=== PATIENT | female | born 1950 | race Caucasian/White ===

== ENCOUNTER 2021-08-05 19:32 | Inpatient (IN) ==
--- NOTE | 2021-08-05 19:59 | Emergency Department Note ---
Abdominal Pain HPI <SHAUNA Callahan - Last Filed: 08/05/21 23:24> General Chief Complaint: Abdominal Pain Stated Complaint: abdominal pain Time Seen by Provider: 08/05/21 19:49 Source: patient Mode of arrival: ambulatory Limitations: no limitations History of Present Illness HPI Narrative: Narrative: patient is a 71-year-old female that comes into the emergency department today after she was seen in urgent care earlier for abdominal pain. Patient was seen at the [facility] [place] and a CBC, CMP, and abdominal x-ray was obtained. Her CBC does not show any leukocytosis and is rather well. Her CMP has a finding total bilirubin 1.2. Normal AST and ALT. Her abdominal x-ray film was read by Dr. Szymanski today that shows partial proximal jejunal obstruction. Patient reports that her symptoms started on Monday where she started to have vomiting which is now resolved. Patient has had diffuse abdominal aching sensation, bloating, and decreased appetite since Monday this week. She reports having a very small brown bowel movement on Monday morning, but since that time has not passed any further bowel movements and reports not passing any gas. She has a history of a bowel obstruction that occurred 20 years ago requiring surgical intervention. She has not had any fevers or chills. She denies any vomiting recently, but did vomit on Monday. Related Data Home Medications Medication Instructions Recorded Confirmed gabapentin 300 mg capsule 300 mg BID 08/05/21 08/05/21 Previous Rx's Medication Instructions Recorded tizanidine 4 mg tablet See Rx Instructions PO BID PRN #90 03/23/21 tab Allergies Allergy/AdvReac Type Severity Reaction Status Date / Time Penicillins Allergy Unknown Hives Verified 08/06/21 01:09 perfume AdvReac Unknown Eyes Water Verified 08/06/21 01:09 Review of Systems <SHAUNA Callahan - Last Filed: 08/05/21 23:24> ROS ROS Narrative: Narrative: All systems ED: reviewed and negative except as stated. PFSH <SHAUNA Callahan - Last Filed: 08/05/21 23:24> Narrative Patient History Narrative: Narrative: Medical/Surgical/Family History All Active Problems (Updated 08/05/21 @ 22:49 by SHAUNA Callahan) Small bowel obstruction (Acute) Nausea & vomiting (Acute) Abdominal pain (Acute) Medicare annual wellness visit, initial (Acute) Cervical disc disease (Acute) Bowel movement symptom (Acute) Joint pain (Chronic ~2018) Muscle pain (Chronic ~2018) Arthritis (Chronic ~2018) Calculus of kidney (Chronic ~04/2013) Pyelonephritis (Chronic) Medical History (Updated 08/05/21 @ 22:49 by SHAUNA Callahan) Abdominal pain Arthritis (~2018) Bowel movement symptom Calculus of kidney (~04/2013) Cervical disc disease Joint pain (~2018) Medicare annual wellness visit, initial Muscle pain (~2018) Related to spinal stenosis Nausea & vomiting Pain and swelling of ankle Pyelonephritis Surgical History History of appendectomy (~2001) History of laparotomy (~2001) 1982 to address ectopic History of surgery Scar tissue from ectopic wrapped around a section of bowel, surgery to removal blockage. S/P cataract surgery (~1984) 1969 S/P lens implant (~2007) S/P tonsillectomy (~1952) Family History Grandmother Arthritis Maternal HTN (hypertension) Paternal Sister Colon cancer Grandfather Skin cancer Paternal Myocardial infarction Maternal Mother Dementia HTN (hypertension) Migraines Father CVA (cerebral vascular accident) Social History Smoking Status: Former smoker Alcohol Intake Frequency: 0-2 drinks per day Substance Use: does not use Exam <SHAUNA Callahan - Last Filed: 08/05/21 23:24> Narrative Narrative: Narrative: General Limitations: no limitations General appearance: Present alert and in no apparent distress Head Head: Present normocephalic Eye Eye: Present normal appearance; Absent scleral icterus or conjunctival injection ENT ENT: Present normal oropharynx and mucous membranes moist Neck Neck: Present normal inspection Chest Chest: Present normal inspection and symmetric chest wall rise Respiratory Respiratory: Present normal lung sounds bilaterally; Absent respiratory distress, rales/crackles or accessory muscle use Cardiovascular Cardiovascular: Present regular rate, normal rhythm and normal heart sounds; Absent systolic murmur or diastolic murmur Adbominal Abdominal: Present soft and diminished bowel sounds; Absent tenderness, rebound, rigidity, ascites, mass or hernia Extremities Extremities: Present normal inspection, full ROM and normal capillary refill; Absent pedal edema or pretibial edema Neurological Neurological: Present alert and oriented X3 Psychiatric Psychiatric: Present normal affect and normal mood Skin Skin: Present warm (WNL), dry and normal color Course <SHAUNA Callahan - Last Filed: 08/05/21 23:24> Vital Signs Vital signs: Vital Signs Temperature 97.3 F 08/05/21 19:32 Pulse Rate 94 H 08/05/21 19:32 Respiratory Rate 18 08/05/21 19:32 Blood Pressure 146/92 08/05/21 19:32 Pulse Oximetry (%) 99 08/05/21 19:32 Temperature 98.2 F 08/06/21 03:58 Pulse Rate 71 08/06/21 03:58 Respiratory Rate 14 08/06/21 03:58 Blood Pressure 130/84 08/06/21 03:58 Pulse Oximetry (%) 97 08/06/21 03:58 MDM <SHAUNA Callahan - Last Filed: 08/05/21 23:24> MDM Narrative Medical decision making narrative: Narrative: patient is a 71-year-old female with a small bowel obstruction and came into the emergency department after being evaluated at urgent care. Patient received a CT abdomen and pelvis with contrast. This was read by [facility] with preli minary report showing moderate amount of stool with small amount of free fluid. Small bowel obstruction likely transition point in right lower quadrant where there is some wall thickening. I was able to consult with Dr. Nato Man today had [facility] and he accepts patient for hospital admission today. Patient to be admitted to [facility] for the small bowel obstruction. Patient's CBC and CMP was reviewed from earlier today that was drawn at urgent care. She does not have any leukocytosis. She received a liter of normal saline today in the emergency department and 4 mg of ondansetron for nausea. Discharge Plan Patient/Caregiver Discharge Instructions Pt seen by SHIPPING AND RECEIVING CLERK/PA only: No Clinical Impression: Small bowel obstruction Patient Disposition: Xfer As Outpt/Obs ([facility]) Condition: Good Discharge Date/Time: 08/05/21 23:37 Discharge Location: [facility] Inpatient Discharge Comment: to room 129
[2021-08-05] MEDS ORDERED: PROMETHAZINE 25 MG/ML VIAL IV PRN (22:16)
[2021-08-05] MEDS: 0.9 % SODIUM CHLORIDE 1,000 ML IV SCH (22:37)
[2021-08-06] MEDS: METOCLOPRAMIDE 10 MG/2 ML VIAL IV SCH ×5 (01:00→23:15)
[2021-08-06 01:31] LABS: INR 0.9 (0.9-1.1)
--- NOTE | 2021-08-06 04:42 | Cat Scan Report ---
CLINICAL INFORMATION: Abdominal pain and distention COMPARISON: Abdomen and pelvic CT 07/06/2015 TECHNIQUE: Following enteric contrast, 80 cc of Isovue-370 were injected intravenously, and 60 seconds later, 0.625 mm helical slices were obtained from the mid heart through the subtrochanteric regions. Following reconstruction, 2.5 mm sagittal, coronal and axial reformatted images were processed and reviewed at bone, lung and soft tissue windows. Five minutes later, 0.625 mm helical slices were obtained from the mid heart through the kidneys and viewed at soft tissue windows.The exam was performed using radiation dose optimization techniques including, but not limited to, automated exposure control, adjustment of the mA and/or kV according to patient size and use of iterative reconstruction technique. FINDINGS: The lung bases are clear. No effusions. The visualized heart is grossly normal. Abdominal images show mild fatty change within the liver with a few small peripheral cysts. No significant focal hepatic lesion. The gallbladder and bile ducts, liver, adrenal glands, spleen, pancreas and aorta, including aortic branches, are normal in size, configuration and attenuation without focal lesion. Multiple parapelvic cysts in the left kidney are unchanged. 9 mm simple cyst and 5 mm simple cyst in the renal parenchyma also stable. No significant renal abnormality. There is no free air or adenopathy. Small amount of free fluid is noted in the deep true pelvis. Pelvic images show normal urinary bladder. Uterus is retroverted and normal postmenopausal size: 4 x 3 cm. Periuterine varices have decreased since the 2015 CT. The stomach and small bowel are markedly dilated to a transient point in the distal ileum located in the right lower quadrant (axial image 125, sagittal image 70 and coronal image 42.. There is a stricture or adhesions in this region. The distal small bowel and colon are markedly decompressed. Bone windows show no osseous abnormality IMPRESSION: 1. Very high grade distal ileal obstruction due to adhesions or stricture. Mild free fluid in the true pelvis is compatible with early third spacing. 2. Periuterine varices have diminished since the previous exam 3. Parapelvic cysts and parenchymal cysts left kidney-stable. Interpreted and Authenticated by: Cullen Szymanski 08/06/21
[2021-08-06] MEDS: 0.9 % SODIUM CHLORIDE 1,000 ML IV SCH ×3 (05:46→19:25)
[2021-08-06 06:48] LABS: Basophils # (Auto) 0.02 K/mcL (0.00-0.30); Basophils % (Auto) 0.2 % (0.0-2.0); Eosinophils # (Auto) 0.03 K/mcL (0.00-0.70); Eosinophils % (Auto) 0.3 % (0.0-7.0); Hematocrit 40.9 % (34.1-44.9); Hemoglobin 13.9 g/dL (11.2-15.7); Lymphocytes # (Auto) 1.36 K/mcL (1.50-4.80); Lymphocytes % (Auto) 11.8 % (15.5-49.0); Mean Cell Volume 88.7 fL (80.0-100.0); Mean Platelet Volume 10.3 fL (7.4-10.4); Monocytes # (Auto) 1.75 K/mcL (0.10-0.90); Monocytes % (Auto) 15.2 % (1.0-12.0); Neutrophils % (Auto) 72.5 % (38.0-78.0); Platelet Count 298 K/mcL (140-440); RBC 4.61 M/mcL (3.59-5.38); Red Cell Distribution Width 11.9 % (11.5-14.5); WBC 11.5 K/mcL (4.5-11.0)
[2021-08-06] MEDS: PANTOPRAZOLE 40 MG VIAL IV SCH ×2 (07:00→21:38)
[2021-08-06 07:08] LABS: ALT/SGPT 8 U/L (<40); AST/SGOT 18 U/L (<32); Albumin 4.2 gm/dL (3.2-5.2); Albumin/Globulin Ratio 1.8 (1.0-2.3); Alkaline Phosphatase 60 U/L (39-117); Bilirubin,Direct 0.2 mg/dL (<0.3); Bilirubin,Total 0.8 mg/dL (0.1-1.0); Blood Urea Nitrogen 30 mg/dL (8-23); Carbon Dioxide 26 mmol/L (22-30); Chloride 95 mmol/L (96-108); Globulin 2.4 gm/dL (2.2-3.7); Glomerular Filtration Rate 73; Glucose 80 mg/dL (70-105); Lactate Dehydrogenase 213 U/L (135-225); Phosphorous 3.8 mg/dL (2.5-4.5); Triglycerides 63 mg/dL (<150); Uric Acid 4.8 mg/dL (2.5-8.0)
--- NOTE | 2021-08-06 09:32 | XRay Report ---
CLINICAL INFORMATION: Small bowel obstruction COMPARISON: 08/05/2021. FINDINGS: Stomach and proximal small bowel are moderately dilated with marked decompression of the distal small bowel and the entire large bowel. Findings compatible with high-grade partial small bowel obstruction is no change. NG tube has been placed into the gastric fundus. No free air or soft tissue mass.. IMPRESSION: High-grade small bowel obstruction. NG tube tip overlying the gastric fundus Interpreted and Authenticated by: Cullen Szymanski 08/06/21
--- NOTE | 2021-08-06 14:07 | General Surg History&Physical ---
HPI History of Present Illness Patient information: Note initiated : 08/06/21 at 2:04 pm Service Date, if different from initiated Date: [] Patient: Trupti Lloyd a 71 y/o F admitted on 08/05/21 for abdominal pain. Chief Complaint: [] Chief complaint: Small bowel obstruction History of present illness: Ms. Lloyd is a 71 year old F admitted earlier this morning with a small bowel obstruction. The patient has been symptomatic since Monday when she developed crampy abdominal pain with nausea and vomiting. She was seen in urgent care and treated and discharged. Her nausea and vomiting continued she returned to the emergency room where abdominal films suggest high-grade small bowel obstruction. This is confirmed by CT of the abdomen and pelvis. She was admitted and placed on nasogastric decompression with plans for monitoring. She will also have small bowel follow-through performed to determine the level of obstruction. Patient gives a history of having similar episodes about 20 years ago which required operative intervention. 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 Review of Systems All systems: reviewed and no additional remarkable complaints except as stated PFSH PFSH All Active Problems Small bowel obstruction (Acute) Nausea & vomiting (Acute) Abdominal pain (Acute) Medicare annual wellness visit, initial (Acute) Cervical disc disease (Acute) Bowel movement symptom (Acute) Joint pain (Chronic ~2018) Muscle pain (Chronic ~2018) Arthritis (Chronic ~2018) Calculus of kidney (Chronic ~04/2013) Pyelonephritis (Chronic) Medical History Abdominal pain Arthritis (~2018) Bowel movement symptom Calculus of kidney (~04/2013) Cervical disc disease Joint pain (~2018) Medicare annual wellness visit, initial Muscle pain (~2018) Related to spinal stenosis Nausea & vomiting Pain and swelling of ankle Pyelonephritis Surgical History History of appendectomy (~2001) History of laparotomy (~2001) 1982 to address ectopic History of surgery Scar tissue from ectopic wrapped around a section of bowel, surgery to removal blockage. S/P cataract surgery (~1984) 1970 S/P lens implant (~2007) S/P tonsillectomy (~1953) Family History Grandmother Arthritis Maternal HTN (hypertension) Paternal Sister Colon cancer Grandfather Skin cancer Paternal Myocardial infarction Maternal Mother Dementia HTN (hypertension) Migraines Father CVA (cerebral vascular accident) Social History household members: spouse housing: house lives independently: Yes marital status: occupational status: retired smoking status: Former smoker quit date: 07/10/82 pack-years: 14 alcohol intake frequency: 0-2 drinks per day substance use type: does not use MEDS/ALLERGIES Home Medications and Allergies Home Medications Medication Instructions Recorded Confirmed Type tizanidine 4 mg tablet See Rx Instructions PO BID PRN #90 03/23/21 08/05/21 Rx tab gabapentin 300 mg capsule 300 mg BID 08/05/21 08/05/21 History Allergies Allergy/AdvReac Type Severity Reaction Status Date / Time Penicillins Allergy Unknown Hives Verified 08/06/21 01:09 perfume AdvReac Unknown Eyes Water Verified 08/06/21 01:09 Physical Examination Vital Signs Vital signs: Temp Pulse Resp BP Pulse Ox 98.6 F 85 16 131/79 99 08/06/21 07:36 08/06/21 07:36 08/06/21 07:36 08/06/21 07:36 08/06/21 07:36 General physical appearance General physical exam: moderate distress, moderate pain and other (Underweight) Eyes Eye exam: PERRL and normal ocular movement ENT ENT exam: normal nares, normal mucosa and no congestion Head Head exam IM: Present atraumatic, normal inspection and normocephalic Neck Neck exam: no masses, no bruits, trachea midline, no lymphadenopathy and no venous distension Cardiovascular Cardiovascular exam IM: Present normal rate and rhythm, RRR, +S1 and +S2; Absent JVD Respiratory Respiratory exam: normal expansion, normal respiratory effort and clear to auscultation Abdomen Abdomen: Present tender (Diffuse tenderness throughout abdomen ) and distended Integumentary Integumentary: Present no rash, no growths and no abnormal pigmentation Neurologic Neurologic: Present normal coordination and normal sensation Musculoskeletal Musculoskeletal: Present normal gait and normal posture Psychiatric Psychiatric: Present oriented to time, oriented to person, oriented to place, speech is normal and memory intact Results Labs Result diagrams: 08/06/21 05:41 08/06/21 05:41 Labs: Abnormal lab results 08/06/21 08/06/21 Range/Units 05:41 05:41 WBC 11.5 H (4.5-11.0) K/mcL Lymph % (Auto) 11.8 L (15.5-49.0) % Carbon % (Auto) 15.2 H (1.0-12.0) % Lymph # (Auto) 1.36 L (1.50-4.80) K/mcL Carbon # (Auto) 1.75 H (0.10-0.90) K/mcL Absolute Neutrophils 8.36 H (1.80-8.00) K/mcL Chloride 95 L (96-108) mmol/L BUN 30 H (8-23) mg/dL Diabetes panel 08/06/21 Range/Units 05:41 Sodium 137 (133-145) mmol/L Potassium 3.8 (3.3-5.1) mmol/L Chloride 95 L (96-108) mmol/L Carbon Dioxide 26 (22-30) mmol/L BUN 30 H (8-23) mg/dL Creatinine 0.8 (0.6-1.1) mg/dL Glucose 80 (70-105) mg/dL Calcium 9.0 (8.6-10.4) mg/dL AST 18 (<32) U/L ALT 8 (<40) U/L Alkaline Phosphatase 60 (39-117) U/L Total Protein 6.6 (5.9-8.4) gm/dL Albumin 4.2 (3.2-5.2) gm/dL Triglycerides 63 (<150) mg/dL Calcium panel 08/06/21 Range/Units 05:41 Calcium 9.0 (8.6-10.4) mg/dL Phosphorus 3.8 (2.5-4.5) mg/dL Albumin 4.2 (3.2-5.2) gm/dL Pituitary panel 08/06/21 Range/Units 05:41 Sodium 137 (133-145) mmol/L Potassium 3.8 (3.3-5.1) mmol/L Chloride 95 L (96-108) mmol/L Carbon Dioxide 26 (22-30) mmol/L BUN 30 H (8-23) mg/dL Creatinine 0.8 (0.6-1.1) mg/dL Glucose 80 (70-105) mg/dL Calcium 9.0 (8.6-10.4) mg/dL Adrenal panel 08/06/21 Range/Units 05:41 Sodium 137 (133-145) mmol/L Potassium 3.8 (3.3-5.1) mmol/L Chloride 95 L (96-108) mmol/L Carbon Dioxide 26 (22-30) mmol/L BUN 30 H (8-23) mg/dL Creatinine 0.8 (0.6-1.1) mg/dL Glucose 80 (70-105) mg/dL Calcium 9.0 (8.6-10.4) mg/dL Total Bilirubin 0.8 (0.1-1.0) mg/dL AST 18 (<32) U/L ALT 8 (<40) U/L Alkaline Phosphatase 60 (39-117) U/L Total Protein 6.6 (5.9-8.4) gm/dL Albumin 4.2 (3.2-5.2) gm/dL All other labs normal. A/P Assessment and plan (1) Small bowel obstruction: Status: Acute (2) Nausea & vomiting: Status: Acute Narrative A/P Narrative: Nasogastric decompression IV hydration Small bowel follow-through later today Exploratory laparotomy small bowel follow-through confirms total obstruction Time Spent With Patient Time: Total time spent is greater than 50% in coordination of care (as documented) at patient's floor/unit and/or counseling patient:
[2021-08-06] MEDS ORDERED: SCOPOLAMINE 1 PATCH PATCH TOPICAL PRN (14:47)
--- NOTE | 2021-08-06 14:52 | General Surgery Progress Note ---
SUBJECTIVE Subjective Patient information: Note initiated : 08/06/21 at 2:45 pm Service Date, if different from initiated Date: [] Patient: Trupti Lloyd 71 y/o F admitted on 08/05/21 for abdominal pain. Chief Complaint: [] Interval history: Patient has had large volume output throughout the morning. Small bowel follow- through confirms no transit through small bowel into the colon. She is counseled for exploratory laparotomy and this will be okay Constitutional Vitals: Vital Signs Temp Pulse Resp BP Pulse Ox 98.6 F 85 16 131/79 99 08/06/21 07:36 08/06/21 07:36 08/06/21 07:36 08/06/21 07:36 08/06/21 07:36 Period Temp Pulse Resp BP Sys/Mariano Pulse Ox Last 24 Hr 97.3 F-98.6 F 66-94 14-18 125-151/79-92 97-100 Intake and Output 08/06/21 08/06/21 08/06/21 05:59 13:59 21:59 Intake Total 1000 879 Output Total 1200 550 Balance -200 329 Weight 111 lb Intake & Output: Intake & Output 08/06/21 08/06/21 08/06/21 05:59 13:59 21:59 Intake Total 1000 879 Output Total 1200 550 Balance -200 329 Weight 111 lb Intake: IV 1000 879 Sodium Chloride 0.9% 1,000 ml @ 1000 879 125 mls/hr IV .Q8H [facility] Rx#: [id number] Oral 0 Tube Feeding 0 Output: Gastric Drainage 800 200 NG/OG 800 200 Void Amount 400 Emesis 350 Other: Urine Appearance Clear Urine Color Light Isabel Urine Odor Strong # Voids 1 # Unmeasured Emesis 1 Eye Eye exam: Present EOMI Pupils: Present normal accommodation and PERRL ENT ENT exam: Present mucous membranes moist, normal exam and normal oropharynx Neck Neck exam: Present full ROM; Absent lymphadenopathy or thyromegaly Respiratory Respiratory exam: Present normal respiratory exam and CTAB; Absent rales, rh onchi or wheezes Cardiovascular Cardiovascular exam: Present normal rate and rhythm, RRR, +S1 and +S2; Absent systolic murmur GI/Abdominal GI/Abdominal exam: Present normal bowel sounds and distended (Moderate distention diffusely with diffuse tenderness) Extremities Exam Extremities exam: Present full ROM, normal inspection and neurovascular intact; Absent pedal edema Back Exam Back exam: Present full ROM and normal inspection Neurological Exam Neurological exam: Present alert, oriented X3 and reflexes normal; Absent motor sensory deficit or normal gait Psychiatric Psychiatric exam: Present anxious and normal affect; Absent depressed A/P Assessment and plan (1) Small bowel obstruction: Status: Acute Narrative A/P Narrative: Patient is counseled for exploratory laparotomy and it will be performed later today. Time Spent With Patient Time: Total time spent is greater than 50% in coordination of care (as documented) at patient's floor/unit and/or counseling patient:
[2021-08-06] MEDS ORDERED: CEFEPIME 2 GM VIAL IV ONE (14:54)
--- NOTE | 2021-08-06 15:35 | XRay Report ---
CLINICAL INFORMATION: Distal small bowel obstruction COMPARISON: None. TECHNIQUE: Water-soluble enteric contrast was infused through indwelling NG tube and serial imaging was obtained over five hours and 15 minutes. FINDINGS: The stomach, duodenum, jejunum and proximal ileum are markedly dilated. There is no contrast admitted beyond the known transition point in the distal ileum within the right lower quadrant even on the five hour 15 minute exam. IMPRESSION: High-grade partial versus total small bowel obstruction due to adhesions or stricture in the distal ileum-right lower quadrant Interpreted and Authenticated by: Cullen Szymanski 08/06/21
[2021-08-06] MEDS ORDERED: DEXAMETHASONE 10 MG/ML VIAL ONE (15:37)
[2021-08-06] MEDS ORDERED: LIDOCAINE HCL/PF 100 MG/5 ML SYRINGE IV ONE (15:37)
[2021-08-06] MEDS ORDERED: KETAMINE 50 MG/ML Syringe (ANEST) IV ONE (15:37)
[2021-08-06] MEDS ORDERED: GLYCOPYRROLATE 0.2 MG/ML VIAL IV ONE (15:37)
[2021-08-06] MEDS ORDERED: ESMOLOL 100 MG/10 ML VIAL IV ONE (15:37)
[2021-08-06] MEDS ORDERED: SUGAMMADEX SODIUM 200 MG/2 ML VIAL IV ONE (15:37)
[2021-08-06] MEDS ORDERED: MIDAZOLAM 2 MG/2 ML VIAL ONE (15:37)
[2021-08-06] MEDS ORDERED: ONDANSETRON 4 MG/2 ML VIAL ONE (15:37)
[2021-08-06] MEDS ORDERED: HYDROmorphone 1 MG/ML SYRINGE ONE (15:37)
[2021-08-06] MEDS ORDERED: PROPOFOL 200 MG/20 ML VIAL IV ONE (15:37)
[2021-08-06] MEDS ORDERED: MAGNESIUM SULFATE 2 GM/50 ML BAG IV ONE (15:37)
[2021-08-06] MEDS ORDERED: fentaNYL 250 MCG/5 ML VIAL IV ONE (15:37)
[2021-08-06] MEDS ORDERED: PHENYLephrine 1 MG/10 ML SYRINGE (ANEST) ONE (15:37)
[2021-08-06] MEDS ORDERED: metroNIDAZOLE 500 MG/100 ML BAG IV SCH (16:30)
[2021-08-06] MEDS ORDERED: LACTATED RINGERS 250 ML IV PRN (17:45)
[2021-08-06] MEDS ORDERED: METOPROLOL TARTRATE 5 MG/5 ML VIAL IV PRN (17:45)
[2021-08-06] MEDS ORDERED: HYDROmorphone 0.5 MG/0.5 ML SYRINGE IV PRN (17:45)
[2021-08-06] MEDS ORDERED: BENZOCAINE/MENTHOL 1 LOZENGE PO PRN (17:45)
[2021-08-06] MEDS ORDERED: ACETAMINOPHEN 1,000 MG/100 ML BAG IV ONE (17:45)
[2021-08-06] MEDS ORDERED: IPRATROPIUM/ALBUTEROL 3 ML AMPUL.NEB NEB PRN (17:45)
[2021-08-06] MEDS ORDERED: NALOXONE HCL 0.4 MG/ML VIAL IV PRN (17:45)
[2021-08-06] MEDS ORDERED: LABETALOL 5 MG/ML ML IV PRN (17:45)
[2021-08-06] MEDS ORDERED: LACTATED RINGERS 1,000 ML IV SCH (17:45)
[2021-08-06] MEDS ORDERED: ONDANSETRON 4 MG/2 ML VIAL IV PRN (17:45)
[2021-08-06] MEDS ORDERED: METHOCARBAMOL 1,000 MG/10 ML VIAL IV PRN (17:45)
--- NOTE | 2021-08-06 18:12 | Brief Operative Note ---
Brief Operative Note Date of procedure: 08/06/21 Pre-op diagnosis: small bowel obstruction Post-op diagnosis: same (extensive intraabdominal adhesions with small bowel obstruction) Procedure: exploratory laparotomy with adhesiolysis and small bowel rescetion Grafts/Implants: No Anesthesia: GETA Findings: extensive adhesions of mid and distal small bowel with 3 areas of susanne total adhesions ; intraabdominal small bowel perforation due to major dilation and friablility of bowel Complications: none Surgeon: Irene Man Estimated blood loss (cc): 100 Specimens Removed/Pathology: none sent Condition: stable Disposition: PACU
[2021-08-06] MEDS: fentaNYL 100 MCG/2 ML VIAL IV PRN ×3 (18:29→18:49)
[2021-08-06] MEDS: MEROPENEM 1 GM in 0.9 % SODIUM CHLORIDE 50 ML IV SCH (21:56)
[2021-08-07] MEDS ORDERED: ACETAMINOPHEN 1,000 MG/100 ML BAG IV SCH
[2021-08-07] MEDS: morphine 4 MG/ML VIAL IV PRN ×4 (01:43→21:11)
[2021-08-07] MEDS: ONDANSETRON 4 MG/2 ML VIAL IV PRN ×2 (01:43→07:33)
[2021-08-07] MEDS: 0.9 % SODIUM CHLORIDE 1,000 ML IV SCH ×6 (01:50→22:54)
[2021-08-07] MEDS: METOCLOPRAMIDE 10 MG/2 ML VIAL IV SCH ×4 (05:07→23:30)
[2021-08-07] MEDS: PANTOPRAZOLE 40 MG VIAL IV SCH ×2 (07:23→17:10)
[2021-08-07 08:05] LABS: Basophils # (Auto) 0.04 K/mcL (0.00-0.30); Basophils % (Auto) 0.6 % (0.0-2.0); Eosinophils # (Auto) 0 K/mcL (0.00-0.70); Eosinophils % (Auto) 0 % (0.0-7.0); Hematocrit 44.7 % (34.1-44.9); Hemoglobin 14.1 g/dL (11.2-15.7); Lymphocytes # (Auto) 0.35 K/mcL (1.50-4.80); Lymphocytes % (Auto) 5.3 % (15.5-49.0); Mean Cell Volume 95.3 fL (80.0-100.0); Mean Corpuscular HGB Conc 31.5 g/dL (31.0-36.0); Mean Platelet Volume 10.6 fL (7.4-10.4); Monocytes # (Auto) 0.78 K/mcL (0.10-0.90); Monocytes % (Auto) 11.8 % (1.0-12.0); Neutrophils % (Auto) 82.3 % (38.0-78.0); Platelet Count 253 K/mcL (140-440); RBC 4.69 M/mcL (3.59-5.38); Red Cell Distribution Width 12.2 % (11.5-14.5); WBC 6.6 K/mcL (4.5-11.0)
[2021-08-07 08:16] LABS: ALT/SGPT 8 U/L (<40); AST/SGOT 17 U/L (<32); Albumin/Globulin Ratio 1.5 (1.0-2.3); Alkaline Phosphatase 42 U/L (39-117); Bilirubin,Direct 0.2 mg/dL (<0.3); Bilirubin,Total 0.5 mg/dL (0.1-1.0); Blood Urea Nitrogen 36 mg/dL (8-23); Calcium 7.7 mg/dL (8.6-10.4); Carbon Dioxide 21 mmol/L (22-30); Chloride 106 mmol/L (96-108); Glomerular Filtration Rate 50; Glucose 103 mg/dL (70-105); Lactate Dehydrogenase 207 U/L (135-225); Phosphorous 4.4 mg/dL (2.5-4.5); Triglycerides 47 mg/dL (<150); Uric Acid 5.5 mg/dL (2.5-8.0)
[2021-08-07] MEDS: MEROPENEM 1 GM in 0.9 % SODIUM CHLORIDE 50 ML IV SCH ×3 (08:28→21:58)
--- NOTE | 2021-08-07 15:23 | General Surgery Progress Note ---
SUBJECTIVE Subjective Patient information: Note initiated : 08/07/21 at 3:19 pm Service Date, if different from initiated Date: [] Patient: Trupti Lloyd 71 y/o F admitted on 08/06/21 for abdominal pain. Chief Complaint: [] Principal diagnosis: Small bowel obstruction Interval history: Patient is clinically stable. She has had small amount of flatus but has significant abdominal distention stomach: Nasogastric output is still significant. She has mild dehydration BUN 36. White blood count 6.6, hemoglobin 14.1, hematocrit 44.7, potassium 3.8 Constitutional Vitals: Vital Signs Temp Pulse Resp BP Pulse Ox 102.1 F H 104 H 16 115/76 95 08/07/21 11:11 08/07/21 11:11 08/07/21 11:11 08/07/21 11:11 08/07/21 11:11 Period Temp Pulse Resp BP Sys/Mariano Pulse Ox Last 24 Hr 97.4 F-102.1 F 88-116 11-23 101-142/64-114 90-100 Intake and Output 08/07/21 08/07/21 08/07/21 05:59 13:59 21:59 Intake Total 1150 1050 Output Total 615 Balance 535 1050 Weight 116 lb Patient Weight 08/08/21 05:59 Weight 116 lb Intake & Output: Intake & Output 08/07/21 08/07/21 08/07/21 05:59 13:59 21:59 Intake Total 1150 1050 Output Total 615 Balance 535 1050 Weight 116 lb Intake: IV 1150 1050 Sodium Chloride 0.9% 1,000 ml @ 1000 1000 125 mls/hr IV .Q8H [facility] Rx#: [id number] Merrem 1 gm In Sodium Chloride 50 50 0.9% 50 ml @ 100 mls/hr IV Q8H [facility] Rx#:[id number] Tube Feeding 0 Output: Gastric Drainage 100 NG/OG 100 Drainage 65 Right MONICA Drain 65 Urine Catheter Amount 450 Other: Urine Appearance Clear Uretheral (Connor) Clear Urine Color Dark Isabel Uretheral (Connor) Dark Isabel Urine Odor Strong ENT ENT exam: Present mucous membranes moist, normal external ear exam and normal oropharynx Neck Neck exam: Present full ROM; Absent tenderness Respiratory Respiratory exam: Present normal respiratory exam and CTAB Cardiovascular Cardiovascular exam: Present normal rate and rhythm, RRR, +S1 and +S2; Absent JVD GI/Abdominal GI/Abdominal exam: Present diminished bowel sounds, distended (Moderate diffuse distention) and hypoactive bowel sounds; Absent rebound Extremities Exam Extremities exam: Present neurovascular intact; Absent pedal edema Neurological Exam Neurological exam: Present normal gait, oriented X3 and reflexes normal; Absent motor sensory deficit Psychiatric Psychiatric exam: Present normal affect and normal mood A/P Assessment and plan (1) Small bowel obstruction: Status: Acute (2) Entrapment of intestine in abdominal adhesions: Status: Acute Narrative A/P Narrative: Add albumin 25 g IV every 6 hours x6 doses Ice chips and popsicles Time Spent With Patient Time: Total time spent is greater than 50% in coordination of care (as documented) at patient's floor/unit and/or counseling patient:
[2021-08-08] MEDS: 0.9 % SODIUM CHLORIDE 1,000 ML IV SCH ×4 (03:59→23:17)
[2021-08-08] MEDS: MEROPENEM 1 GM in 0.9 % SODIUM CHLORIDE 50 ML IV SCH ×3 (05:00→21:33)
[2021-08-08] MEDS: METOCLOPRAMIDE 10 MG/2 ML VIAL IV SCH ×3 (06:36→17:47)
[2021-08-08] MEDS: PANTOPRAZOLE 40 MG VIAL IV SCH ×2 (07:23→17:47)
--- NOTE | 2021-08-08 12:47 | General Surgery Progress Note ---
SUBJECTIVE Subjective Patient information: Note initiated : 08/08/21 at 12:41 pm Service Date, if different from initiated Date: [] Patient: Trupti Lloyd 71 y/o F admitted on 08/06/21 for abdominal pain. Chief Complaint: [] Principal diagnosis: Small bowel obstruction Interval history: Patient is doing well. Her pain is controlled. She has a small amount of flatus. The output through her NG tube has decreased. She denies nausea. She still has mild abdominal distention Constitutional Vitals: Vital Signs Temp Pulse Resp BP Pulse Ox 97 F 98 H 16 125/76 96 08/08/21 08:00 08/08/21 04:00 08/08/21 08:00 08/08/21 08:00 08/08/21 08:00 Period Temp Pulse Resp BP Sys/Mariano Pulse Ox Last 24 Hr 97 F-98.7 F 90-105 12-18 119-132/70-79 94-97 Intake and Output 08/07/21 08/08/21 08/08/21 21:59 05:59 13:59 Intake Total 1150 1220 0 Output Total 880 805 Balance 270 415 0 Weight 118 lb 3.2 oz Intake & Output: Intake & Output 08/07/21 08/08/21 08/08/21 21:59 05:59 13:59 Intake Total 1150 1220 0 Output Total 880 805 Balance 270 415 0 Weight 118 lb 3.2 oz Intake: IV 1050 1100 Sodium Chloride 0.9% 1,000 ml @ 1000 1000 125 mls/hr IV .Q8H JOHN Rx#: [id number] Merrem 1 gm In Sodium Chloride 50 100 0.9% 50 ml @ 100 mls/hr IV Q8H JOHN Rx#:[id number] Oral 100 120 Tube Feeding 0 0 Output: Gastric Drainage 500 425 NG/OG 500 425 Drainage 30 30 Right MONICA Drain 30 30 Urine Catheter Amount 350 350 Other: Meal popsicle Feeding Ability Independent Urine Appearance Clear Uretheral (Connor) Clear Clear Urine Color Dark Yellow Dark Isabel Uretheral (Connor) Dark Yellow Dark Isabel Urine Odor Strong Head Head exam: Present atraumatic, normal inspection and normocephalic Eye Eye exam: Present EOMI and PERRL Pupils: Present normal accommodation ENT ENT exam: Present mucous membranes moist, normal exam and normal oropharynx Neck Neck exam: Present full ROM and normal inspection; Absent tenderness Respiratory Respiratory exam: Present normal respiratory exam and CTAB; Absent rhonchi or wheezes Cardiovascular Cardiovascular exam: Present normal rate and rhythm, RRR, +S1 and +S2; Absent JVD GI/Abdominal GI/Abdominal exam: Present diminished bowel sounds, distended and tenderness (Moderate diffuse tenderness) Extremities Exam Extremities exam: Present full ROM, normal inspection and neurovascular intact Neurological Exam Neurological exam: Present alert, oriented X3 and reflexes normal; Absent motor sensory deficit Psychiatric Psychiatric exam: Present normal affect and normal mood A/P Assessment and plan (1) Small bowel obstruction: Status: Acute (2) Entrapment of intestine in abdominal adhesions: Status: Acute Narrative A/P Narrative: CHECK LABS TODAY CONTINUE PRESENT THERAPY Time Spent With Patient Time: Total time spent is greater than 50% in coordination of care (as documented) at patient's floor/unit and/or counseling patient:
[2021-08-08 13:33] LABS: ALT/SGPT 9 U/L (<40); AST/SGOT 16 U/L (<32); Albumin/Globulin Ratio 1.2 (1.0-2.3); Alkaline Phosphatase 48 U/L (39-117); Bilirubin,Direct < 0.2 mg/dL (0-0.3); Bilirubin,Total 0.4 mg/dL (0.1-1.0); Blood Urea Nitrogen 30 mg/dL (8-23); Calcium 7.9 mg/dL (8.6-10.4); Carbon Dioxide 21 mmol/L (22-30); Chloride 110 mmol/L (96-108); Globulin 2.5 gm/dL (2.2-3.7); Glomerular Filtration Rate 86; Glucose 77 mg/dL (70-105); Lactate Dehydrogenase 177 U/L (135-225); Phosphorous 1.9 mg/dL (2.5-4.5); Triglycerides 60 mg/dL (<150); Uric Acid 5.3 mg/dL (2.5-8.0)
[2021-08-08 13:34] LABS: Basophils # (Auto) 0.06 K/mcL (0.00-0.30); Basophils % (Auto) 0.7 % (0.0-2.0); Eosinophils # (Auto) 0 K/mcL (0.00-0.70); Eosinophils % (Auto) 0 % (0.0-7.0); Hemoglobin 11.9 g/dL (11.2-15.7); Lymphocytes # (Auto) 0.48 K/mcL (1.50-4.80); Lymphocytes % (Auto) 5.3 % (15.5-49.0); Mean Cell Volume 95.9 fL (80.0-100.0); Mean Corpuscular HGB Conc 32.2 g/dL (31.0-36.0); Mean Platelet Volume 10.9 fL (7.4-10.4); Monocytes # (Auto) 1.26 K/mcL (0.10-0.90); Monocytes % (Auto) 13.8 % (1.0-12.0); Neutrophils % (Auto) 80.2 % (38.0-78.0); Platelet Count 220 K/mcL (140-440); RBC 3.86 M/mcL (3.59-5.38); Red Cell Distribution Width 12.5 % (11.5-14.5); WBC 9.1 K/mcL (4.5-11.0)
[2021-08-08] MEDS: morphine 4 MG/ML VIAL IV PRN (21:29)
[2021-08-09] MEDS: morphine 4 MG/ML VIAL IV PRN (00:09)
[2021-08-09] MEDS: METOCLOPRAMIDE 10 MG/2 ML VIAL IV SCH ×4 (00:10→17:45)
[2021-08-09] MEDS: MEROPENEM 1 GM in 0.9 % SODIUM CHLORIDE 50 ML IV SCH ×2 (05:35→14:02)
[2021-08-09] MEDS: 0.9 % SODIUM CHLORIDE 1,000 ML IV SCH ×3 (05:39→16:34)
[2021-08-09 07:29] LABS: Basophils # (Auto) 0.05 K/mcL (0.00-0.30); Basophils % (Auto) 0.5 % (0.0-2.0); Eosinophils # (Auto) 0.01 K/mcL (0.00-0.70); Eosinophils % (Auto) 0.1 % (0.0-7.0); Hematocrit 33.4 % (34.1-44.9); Hemoglobin 10.4 g/dL (11.2-15.7); Lymphocytes % (Auto) 6.7 % (15.5-49.0); Mean Cell Volume 96.3 fL (80.0-100.0); Mean Corpuscular HGB Conc 31.1 g/dL (31.0-36.0); Mean Platelet Volume 10.5 fL (7.4-10.4); Monocytes # (Auto) 1.13 K/mcL (0.10-0.90); Monocytes % (Auto) 10.8 % (1.0-12.0); Neutrophils % (Auto) 81.9 % (38.0-78.0); Platelet Count 218 K/mcL (140-440); RBC 3.47 M/mcL (3.59-5.38); Red Cell Distribution Width 12.6 % (11.5-14.5); WBC 10.5 K/mcL (4.5-11.0)
[2021-08-09] MEDS: PANTOPRAZOLE 40 MG VIAL IV SCH ×2 (07:31→17:45)
[2021-08-09 08:03] LABS: ALT/SGPT 9 U/L (<40); AST/SGOT 15 U/L (<32); Albumin 2.6 gm/dL (3.2-5.2); Albumin/Globulin Ratio 1.6 (1.0-2.3); Alkaline Phosphatase 49 U/L (39-117); Bilirubin,Direct < 0.2 mg/dL (0-0.3); Bilirubin,Total 0.3 mg/dL (0.1-1.0); Blood Urea Nitrogen 24 mg/dL (8-23); Calcium 7.7 mg/dL (8.6-10.4); Carbon Dioxide 22 mmol/L (22-30); Chloride 115 mmol/L (96-108); Globulin 1.6 gm/dL (2.2-3.7); Glomerular Filtration Rate 91; Glucose 62 mg/dL (70-105); Lactate Dehydrogenase 188 U/L (135-225); Phosphorous 1.6 mg/dL (2.5-4.5); Triglycerides 87 mg/dL (<150)
--- NOTE | 2021-08-09 13:32 | General Surgery Progress Note ---
SUBJECTIVE Subjective Patient information: Note initiated : 08/09/21 at 1:27 pm Service Date, if different from initiated Date: [] Patient: Trupti Lloyd 71 y/o F admitted on 08/06/21 for abdominal pain. Chief Complaint: [] Principal diagnosis: Small bowel obstruction Interval history: Patient is doing well. She still has not had much flatus. She denies nausea. She complains of hunger. Potassium 3.5, BUN 24,. creatinine 0.6, phosphorus 1.6, white blood count 10.5, hemoglobin 10.4, hematocrit 33.4. Constitutional Vitals: Vital Signs Temp Pulse Resp BP Pulse Ox 97.2 F 63 18 122/75 98 08/09/21 11:34 08/09/21 11:34 08/09/21 11:34 08/09/21 11:34 08/09/21 07:17 Period Temp Pulse Resp BP Sys/Mariano Pulse Ox Last 24 Hr 97.0 F-98.7 F 63-87 12-20 115-148/67-77 94-98 Intake and Output 08/08/21 08/09/21 08/09/21 21:59 05:59 13:59 Intake Total 230 1050 1050 Output Total 1000 780 Balance -599 869 4280 Weight 119 lb 4.8 oz Intake & Output: Intake & Output 08/08/21 08/09/21 08/09/21 21:59 05:59 13:59 Intake Total 230 1050 1050 Output Total 1000 780 Balance -915 121 6396 Weight 119 lb 4.8 oz Intake: IV 50 1050 1050 Sodium Chloride 0.9% 1,000 ml @ 1000 1000 125 mls/hr IV .Q8H JOHN Rx#: [id number] Merrem 1 gm In Sodium Chloride 50 50 50 0.9% 50 ml @ 100 mls/hr IV Q8H JOHN Rx#:[id number] Oral 180 Tube Feeding 0 0 Output: Gastric Drainage 400 200 NG/OG 400 200 Drainage 80 Right MONICA Drain 80 Urine Catheter Amount 600 500 Other: Urine Appearance Clear Cloudy Uretheral (Connor) Clear Urine Color Bright Yellow Bright Yellow Uretheral (Connor) Bright Yellow Light Isabel Eye Eye exam: Present EOMI and normal appearance Pupils: Present normal accommodation and PERRL ENT ENT exam: Present mucous membranes moist, normal external ear exam and normal oropharynx Neck Neck exam: Present full ROM; Absent tenderness Respiratory Respiratory exam: Present normal respiratory exam and CTAB; Absent rales or rhonchi Cardiovascular Cardiovascular exam: Present normal rate and rhythm, RRR, +S1 and +S2; Absent gallop or JVD GI/Abdominal GI/Abdominal exam: Present soft, diminished bowel sounds, distended (Mild diffuse distention) and tenderness (Primarily incisional tenderness) Extremities Exam Extremities exam: Present full ROM, normal inspection and neurovascular intact Back Exam Back exam: Present normal inspection Neurological Exam Neurological exam: Present alert, normal gait and oriented X3; Absent motor sensory deficit Psychiatric Psychiatric exam: Present normal affect and normal mood A/P Assessment and plan (1) Entrapment of intestine in abdominal adhesions: Status: Acute (2) Small bowel obstruction: Status: Acute (3) Postoperative ileus: Status: Acute Narrative A/P Narrative: Potassium phosphate rider x2 Clamp nasogastric tube Time Spent With Patient Time: Total time spent is greater than 50% in coordination of care (as documented) at patient's floor/unit and/or counseling patient:
[2021-08-09] MEDS: POTASSIUM PHOSPHATE 40 MEQ in DEXTROSE 5% IN WATER 500 ML IV SCH ×2 (15:15→19:55)
--- NOTE | 2021-08-09 17:24 | EKG ---
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 Measurements Intervals [place] Rate: 77 P: 76 TX: 110 QRS: 96 QRSD: 104 T: 263 QT: 419 QTc: 475 Interpretive Statements Sinus rhythm Atrial premature complexes Short [place] interval Diffuse Abnormal T, consider ischemia, anterolateral and inferior lds Electronically Signed On 08-09-2021 17:24:45 PST by Raffaele Foster D.O. /store/[email or web address]/[id number]
--- NOTE | 2021-08-09 17:25 | EKG ---
[facility] Test Date: 2021-08-06 Pat Name: Trupti Lloyd Department: MEDSUR Room: 129 Gender: Female Major Gifts Officer: : 1950 Requested By: Simón Boyd Order Number: [id number] Reading MD: Raffaele Foster D.O. Measurements Intervals [place] Rate: 104 P: 71 TN: 106 QRS: 94 QRSD: 108 T: -69 QT: 392 QTc: 516 Interpretive Statements Sinus tachycardia Repol abnrm suggests ischemia, lateral leads Prolonged QT interval Electronically Signed On 08-09-2021 17:25:43 PST by Raffaele Foster D.O. /store/[email or web address]/[id number]
[2021-08-10] MEDS: 0.9 % SODIUM CHLORIDE 1,000 ML IV SCH ×3 (00:35→08:40)
[2021-08-10] MEDS: METOCLOPRAMIDE 10 MG/2 ML VIAL IV SCH ×5 (00:35→23:35)
[2021-08-10] MEDS: MEROPENEM 1 GM in 0.9 % SODIUM CHLORIDE 50 ML IV SCH ×4 (00:36→22:53)
[2021-08-10 06:51] LABS: Basophils # (Auto) 0.04 K/mcL (0.00-0.30); Basophils % (Auto) 0.3 % (0.0-2.0); Eosinophils # (Auto) 0.04 K/mcL (0.00-0.70); Eosinophils % (Auto) 0.3 % (0.0-7.0); Hematocrit 34.4 % (34.1-44.9); Lymphocytes # (Auto) 0.76 K/mcL (1.50-4.80); Lymphocytes % (Auto) 5.2 % (15.5-49.0); Mean Platelet Volume 10.5 fL (7.4-10.4); Monocytes # (Auto) 1.27 K/mcL (0.10-0.90); Monocytes % (Auto) 8.7 % (1.0-12.0); Neutrophils % (Auto) 85.5 % (38.0-78.0); Platelet Count 240 K/mcL (140-440); RBC 3.66 M/mcL (3.59-5.38); Red Cell Distribution Width 12.5 % (11.5-14.5); WBC 14.7 K/mcL (4.5-11.0)
[2021-08-10 07:07] LABS: ALT/SGPT 9 U/L (<40); AST/SGOT 16 U/L (<32); Albumin 2.8 gm/dL (3.2-5.2); Albumin/Globulin Ratio 1.2 (1.0-2.3); Alkaline Phosphatase 62 U/L (39-117); Bilirubin,Direct < 0.2 mg/dL (0-0.3); Bilirubin,Total 0.3 mg/dL (0.1-1.0); Blood Urea Nitrogen 22 mg/dL (8-23); Calcium 8.1 mg/dL (8.6-10.4); Carbon Dioxide 23 mmol/L (22-30); Chloride 112 mmol/L (96-108); Globulin 2.4 gm/dL (2.2-3.7); Glomerular Filtration Rate 96; Glucose 102 mg/dL (70-105); Lactate Dehydrogenase 222 U/L (135-225); Phosphorous 1.7 mg/dL (2.5-4.5); Triglycerides 112 mg/dL (<150); Uric Acid 5.1 mg/dL (2.5-8.0)
[2021-08-10] MEDS: PANTOPRAZOLE 40 MG VIAL IV SCH ×2 (07:07→17:46)
[2021-08-10] MEDS ORDERED: tiZANidine 4 MG TABLET PO PRN (14:32)
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
--- NOTE | 2021-08-10 15:15 | XRay Report ---
CLINICAL INFORMATION: Post-op small bowel resection. COMPARISON: Abdomen plain film 08/06/2021 FINDINGS: Scattered fluid levels are seen within normal caliber stomach, small and large bowel compatible postoperative ileus. No evidence of bowel obstruction. Surgical drain present within the true pelvis. NG tube overlies the gastric body. There is no free air. IMPRESSION: Mild postoperative ileus. Interpreted and Authenticated by: Cullen Szymanski 08/10/21
[2021-08-10] MEDS: POTASSIUM PHOSPHATE 40 MEQ in DEXTROSE 5% IN WATER 500 ML IV SCH ×2 (16:14→23:35)
[2021-08-10] MEDS: GABAPENTIN 300 MG CAPSULE PO SCH (20:49)
[2021-08-11] MEDS: 0.9 % SODIUM CHLORIDE 1,000 ML IV SCH ×5 (04:12→23:42)
[2021-08-11] MEDS: morphine 4 MG/ML VIAL IV PRN (05:22)
[2021-08-11] MEDS: MEROPENEM 1 GM in 0.9 % SODIUM CHLORIDE 50 ML IV SCH ×3 (06:07→21:35)
[2021-08-11] MEDS: METOCLOPRAMIDE 10 MG/2 ML VIAL IV SCH ×4 (06:07→23:42)
[2021-08-11 06:32] LABS: Basophils # (Auto) 0.05 K/mcL (0.00-0.30); Basophils % (Auto) 0.4 % (0.0-2.0); Eosinophils # (Auto) 0.02 K/mcL (0.00-0.70); Eosinophils % (Auto) 0.1 % (0.0-7.0); Hematocrit 37.3 % (34.1-44.9); Lymphocytes # (Auto) 1.08 K/mcL (1.50-4.80); Mean Corpuscular HGB Conc 32.2 g/dL (31.0-36.0); Mean Platelet Volume 10.2 fL (7.4-10.4); Monocytes # (Auto) 1.62 K/mcL (0.10-0.90); Neutrophils % (Auto) 79.5 % (38.0-78.0); Platelet Count 251 K/mcL (140-440); RBC 3.97 M/mcL (3.59-5.38); Red Cell Distribution Width 12.3 % (11.5-14.5); WBC 13.5 K/mcL (4.5-11.0)
[2021-08-11 07:53] LABS: ALT/SGPT 12 U/L (<40); AST/SGOT 18 U/L (<32); Albumin 2.8 gm/dL (3.2-5.2); Albumin/Globulin Ratio 1.1 (1.0-2.3); Alkaline Phosphatase 66 U/L (39-117); Bilirubin,Direct < 0.2 mg/dL (0-0.3); Bilirubin,Total 0.3 mg/dL (0.1-1.0); Blood Urea Nitrogen 16 mg/dL (8-23); Calcium 8.3 mg/dL (8.6-10.4); Carbon Dioxide 21 mmol/L (22-30); Chloride 107 mmol/L (96-108); Globulin 2.6 gm/dL (2.2-3.7); Glomerular Filtration Rate 104; Glucose 137 mg/dL (70-105); Lactate Dehydrogenase 289 U/L (135-225); Phosphorous 3.6 mg/dL (2.5-4.5); Triglycerides 124 mg/dL (<150); Uric Acid 3.1 mg/dL (2.5-8.0)
[2021-08-11] MEDS: PANTOPRAZOLE 40 MG VIAL IV SCH ×2 (08:44→17:28)
[2021-08-11] MEDS: GABAPENTIN 300 MG CAPSULE PO SCH ×2 (09:32→21:35)
--- NOTE | 2021-08-11 14:37 | General Surgery Progress Note ---
SUBJECTIVE Subjective Patient information: Note initiated : 08/11/21 at 2:28 pm Service Date, if different from initiated Date: [] Patient: Trupti Lloyd 71 y/o F admitted on 08/06/21 for abdominal pain. Chief Complaint: [] Principal diagnosis: Small bowel obstruction Interval history: Patient is doing well and she has had increased flatus with no bowel movement so far. Has less abdominal distention and she has better control of pain. White blood count 13.5, hemoglobin 12, hematocrit 37.3, potassium 3.2, BUN 16, creatinine 0.4. Pertinent ROS: Patient has no complaints except for discomfort from the nasogastric tube. She has less distention and she is passing more flatus Constitutional Vitals: Vital Signs Temp Pulse Resp BP Pulse Ox 97.7 F 70 16 136/86 96 08/11/21 13:00 08/11/21 13:00 08/11/21 13:00 08/11/21 13:00 08/11/21 13:00 Period Temp Pulse Resp BP Sys/Mariano Pulse Ox Last 24 Hr 97.7 F-98.8 F 66-71 16-20 135-157/77-86 95-99 Intake and Output 08/11/21 08/11/21 08/11/21 05:59 13:59 21:59 Intake Total 461.0909 1015.0909 Output Total 455 70 Balance 6.0909 945.0909 Intake & Output: Intake & Output 08/11/21 08/11/21 08/11/21 05:59 13:59 21:59 Intake Total 461.0909 1015.0909 Output Total 455 70 Balance 6.0909 945.0909 Intake: IV 461.0909 655.0909 Sodium Chloride 0.9% 1,000 ml @ 96 125 mls/hr IV .Q8H JOHN Rx#: [id number] Merrem 1 gm In Sodium Chloride 50 50 0.9% 50 ml @ 100 mls/hr IV Q8H JOHN Rx#:[id number] Potassium Phosphate 40 Meq In 411.0909 509.0909 Dextrose 5% in Water 500 ml @ 127.273 mls/hr IV Q4H JOHN Rx#: [id number] Oral 0 360 Tube Feeding 0 Output: Drainage 80 70 Right MONICA Drain 80 70 Void Amount 375 Other: Meal Breakfast Percent of Meal Consumed 75% Feeding Ability Independent Urine Appearance Clear Cloudy Urine Color Bright Yellow Light Isabel Urine Odor Normal Neck Neck exam: Present full ROM and normal inspection; Absent tenderness Respiratory Respiratory exam: Present normal respiratory exam and CTAB; Absent rhonchi or wheezes Cardiovascular Cardiovascular exam: Present normal rate and rhythm, RRR, +S1 and +S2; Absent JVD GI/Abdominal GI/Abdominal exam: Present normal bowel sounds (Bowel sounds are significantly improved), distended (Distention is less 24 hours previously) and tenderness (Minimal tenderness of the incision;); Absent guarding Additional comments: Drainage is primarily serous Extremities Exam Extremities exam: Present normal inspection, pedal edema (1+ edema bilaterally) and neurovascular intact Neurological Exam Neurological exam: Present oriented X3 and reflexes normal; Absent motor sensory deficit Psychiatric Psychiatric exam: Present normal affect and normal mood A/P Assessment and plan (1) Entrapment of intestine in abdominal adhesions: Status: Acute (2) Small bowel obstruction: Status: Acute (3) Postoperative ileus: Status: Acute Narrative A/P Narrative: Nasogastric tube discontinued Clear liquid diet instituted Check two-view abdominal x-ray in the morning Time Spent With Patient Time: Total time spent is greater than 50% in coordination of care (as documented) at patient's floor/unit and/or counseling patient:
[2021-08-12] MEDS: METOCLOPRAMIDE 10 MG/2 ML VIAL IV SCH ×3 (06:00→18:05)
[2021-08-12] MEDS: MEROPENEM 1 GM in 0.9 % SODIUM CHLORIDE 50 ML IV SCH ×3 (06:00→20:59)
[2021-08-12] MEDS: 0.9 % SODIUM CHLORIDE 1,000 ML IV SCH ×5 (07:06→21:00)
[2021-08-12] MEDS: PANTOPRAZOLE 40 MG VIAL IV SCH ×2 (07:06→17:12)
[2021-08-12] MEDS: GABAPENTIN 300 MG CAPSULE PO SCH ×2 (08:39→21:00)
--- NOTE | 2021-08-12 09:40 | XRay Report ---
CLINICAL INFORMATION: FOLLOW -UP OF SMALL BOWEL OBSTRUCTION COMPARISON: 08/10/2021. FINDINGS: NG tube now. The stool gas pattern is unremarkable. There is no free air, soft tissue mass, organomegaly or pathologic calcification. Drain overlies the false pelvis. Small consolidated region of atelectasis or less likely infiltrate and small left pleural effusion has developed in the left lung base IMPRESSION: Normal abdomen. New small insonated infiltrate or atelectasis in the left basal with small left pleural effusion. Interpreted and Authenticated by: Cullen Szymanski 08/12/21
--- NOTE | 2021-08-12 11:46 | General Surgery Progress Note ---
SUBJECTIVE Subjective Patient information: Note initiated : 08/12/21 at 11:42 am Service Date, if different from initiated Date: [] Patient: Trutpi Lloyd 71 y/o F admitted on 08/06/21 for abdominal pain. Chief Complaint: [] Principal diagnosis: Small bowel obstruction Interval history: Patient continues to improve. She is passing large volumes of flatus but she has not had bowel movement. She denies abdominal pain. Abdominal x-ray shows normal gas pattern without any evidence of obstruction. Potassium 4.2, BUN 16, creatinine 0.4, white blood count 13.5, hemoglobin 12, hematocrit 37.3. Constitutional Vitals: Vital Signs Temp Pulse Resp BP Pulse Ox 98.0 F 73 16 138/79 98 08/12/21 08:00 08/12/21 08:00 08/12/21 08:00 08/12/21 08:00 08/12/21 08:00 Period Temp Pulse Resp BP Sys/Mariano Pulse Ox Last 24 Hr 97.7 F-98.3 F 65-78 14-20 121-147/72-94 96-100 Intake and Output 08/11/21 08/12/21 08/12/21 21:59 05:59 13:59 Intake Total 1410 1281 1650 Output Total 356 675 690 Balance 1054 606 960 Weight 128 lb 6.4 oz Intake & Output: Intake & Output 08/11/21 08/12/21 08/12/21 21:59 05:59 13:59 Intake Total 1410 1281 1650 Output Total 356 675 690 Balance 1054 606 960 Weight 128 lb 6.4 oz Intake: IV 3320 622 5550 Sodium Chloride 0.9% 1,000 ml @ 8357 935 7637 125 mls/hr IV .Q8H JOHN Rx#: [id number] Merrem 1 gm In Sodium Chloride 50 50 50 0.9% 50 ml @ 100 mls/hr IV Q8H JOHN Rx#:[id number] Oral 360 300 600 Output: Drainage 205 75 90 Right MONICA Drain 205 75 90 Void Amount 151 600 600 Other: Meal Dinner Breakfast Percent of Meal Consumed 75% 100% Feeding Ability Independent Independent Urine Appearance Clear Clear Urine Color Bright Yellow Bright Yellow Urine Odor Normal ENT ENT exam: Present mucous membranes moist and normal oropharynx Neck Neck exam: Present full ROM; Absent normal inspection or tenderness Respiratory Respiratory exam: Present normal respiratory exam and CTAB; Absent rhonchi, stridor or wheezes Cardiovascular Cardiovascular exam: Present normal rate and rhythm, RRR, +S1 and +S2; Absent JVD GI/Abdominal GI/Abdominal exam: Present normal bowel sounds and soft; Absent distended Additional comments: Incision is Extremities Exam Extremities exam: Present full ROM, normal inspection and neurovascular intact Neurological Exam Neurological exam: Present alert, normal gait and oriented X3; Absent motor sensory deficit Psychiatric Psychiatric exam: Present normal affect and normal mood A/P Assessment and plan (1) Postoperative ileus: Status: Acute (2) Entrapment of intestine in abdominal adhesions: Status: Acute (3) Small bowel obstruction: Status: Acute Narrative A/P Narrative: Advance to full liquids Milk of magnesia every 4 hours x3 doses Probable discharge in 48 hours Time Spent With Patient Time: Total time spent is greater than 50% in coordination of care (as documented) at patient's floor/unit and/or counseling patient:
[2021-08-12] MEDS: MAGNESIUM HYDROXIDE 30 ML ORAL.SUSP PO SCH ×3 (11:51→21:00)
[2021-08-13] MEDS: METOCLOPRAMIDE 10 MG/2 ML VIAL IV SCH ×4 (01:45→17:32)
[2021-08-13] MEDS: 0.9 % SODIUM CHLORIDE 1,000 ML IV SCH ×2 (02:02→08:59)
[2021-08-13] MEDS: MEROPENEM 1 GM in 0.9 % SODIUM CHLORIDE 50 ML IV SCH (05:23)
[2021-08-13] MEDS: GABAPENTIN 300 MG CAPSULE PO SCH (09:03)
[2021-08-13] MEDS: PANTOPRAZOLE 40 MG VIAL IV SCH ×2 (09:03→17:33)
--- NOTE | 2021-08-13 09:35 | XRay Report ---
CLINICAL INFORMATION: FOLLOW -UP OF SMALL BOWEL OBSTRUCTION COMPARISON: None. FINDINGS: Multiple loops of small bowel the abdomen are now moderately dilated with air-fluid levels. Only small amounts of gas are seen within the colon seen within the colon. No free air. Surgical drain seen in the pelvis. IMPRESSION: Possible recurrent distal small bowel obstruction. Interpreted and Authenticated by: Cullen Szymanski 08/13/21
--- NOTE | 2021-08-13 10:58 | General Surgery Progress Note ---
SUBJECTIVE Subjective Patient information: Note initiated : 08/13/21 at 10:51 am Service Date, if different from initiated Date: [] Patient: Trupti Lloyd 71 y/o F admitted on 08/06/21 for abdominal pain. Chief Complaint: [] Principal diagnosis: Small bowel obstruction Interval history: Patient continues to gradually improve. She has had more flatus and had a very large bowel movement earlier this morning she states that she Feels much better. She has significant abdominal distention and her x-ray shows major small bowel dilation extending to the colon. Though the x-ray was interpreted as showing distal small bowel obstruction and clinical picture suggests more ileus since she has been having large volume of flatus for 4 days and she had bowel movement today. Discussed with patient will be plan to monitor her to this afternoon before discharge. Potassium BUN and creatinine are normal. White blood count 10, hemoglobin 8.6, hematocrit 27.9. Constitutional Vitals: Vital Signs Temp Pulse Resp BP Pulse Ox 98.3 F 95 H 18 105/68 97 08/13/21 08:53 08/13/21 08:53 08/13/21 08:53 08/13/21 08:53 08/13/21 08:53 Period Temp Pulse Resp BP Sys/Mariano Pulse Ox Last 24 Hr 98.1 F-98.8 F 80-95 16-18 105-138/68-83 95-99 Intake and Output 08/12/21 08/13/21 08/13/21 21:59 05:59 13:59 Intake Total 2740 1008 236 Output Total 1030 920 520 Balance 1710 88 -284 Weight 133 lb 4.8 oz Intake & Output: Intake & Output 08/12/21 08/13/21 08/13/21 21:59 05:59 13:59 Intake Total 2740 1008 236 Output Total 1030 920 520 Balance 1710 88 -284 Weight 133 lb 4.8 oz Intake: IV 1100 1008 Sodium Chloride 0.9% 1,000 ml @ 1000 958 125 mls/hr IV .Q8H JOHN Rx#: [id number] Merrem 1 gm In Sodium Chloride 100 50 0.9% 50 ml @ 100 mls/hr IV Q8H JOHN Rx#:[id number] Oral 840 236 GI Tube Flush 800 Output: Drainage 170 Right MONICA Drain 170 Drainage 130 70 Right MONICA Drain 130 70 Void Amount 900 750 Urine/Stool Mix 450 Other: Meal Dinner Breakfast Percent of Meal Consumed 100% 75% Feeding Ability Independent Independent Urine Appearance Clear Urine Color Dark Yellow Urine Odor Normal Stool Size Smear Large Moderate Stool Color Brown Brown Brown Stool Consistency Liquid Soft Formed Loose Formed Loose # Voids 1 # Bowel Movements 2 1 ENT ENT exam: Present normal exam, normal external ear exam and normal oropharynx Neck Neck exam: Present full ROM; Absent tenderness Respiratory Respiratory exam: Present normal respiratory exam and CTAB Cardiovascular Cardiovascular exam: Present normal rate and rhythm, RRR, +S1 and +S2; Absent JVD GI/Abdominal GI/Abdominal exam: Present diminished bowel sounds, distended ( moderate distention Diffusely) and tenderness (Mild incisional tenderness) Extremities Exam Extremities exam: Present neurovascular intact Neurological Exam Neurological exam: Present normal gait and oriented X3; Absent motor sensory deficit Psychiatric Psychiatric exam: Present normal affect and normal mood A/P Assessment and plan (1) Postoperative ileus: Status: Acute (2) Entrapment of intestine in abdominal adhesions: Status: Acute Narrative A/P Narrative: Saline lock IV Discontinue meropenem Probable discharge later today Time Spent With Patient Time: Total time spent is greater than 50% in coordination of care (as documented) at patient's floor/unit and/or counseling patient:
--- NOTE | 2021-08-13 17:37 | Discharge Summary ---
Discharge Provider Provider Patient information: Note initiated : 08/13/21 at 5:30 pm Service Date, if different from initiated Date: [] Patient: Trupti Lloyd 71 y/o F admitted on 08/06/21 for abdominal pain. Chief Complaint: [] Date of admission: 08/06/21 14:38 Discharge date: 08/13/21 Primary care physician: Brant Robles MD Admitting clinician: Irene Man Attending physician on admission: Irene Man Consults: 08/05/21 Consult to Physician [CONS] Stat Comment: Consulting Provider: Irene Man Reason For Exam: Physician to Consult Attending physician on discharge: Irene Man Discharging clinician: Irene Man COURSE Hospital Course Hospital course: 71-year-old female who presented on 06 August with evidence of small bowel obstruction. After stabilization she was explored and was found to have extensive intra-abdominal adhesions with high-grade small bowel obstruction. Intraoperatively she had 3 areas of near total occlusion of the small bowel. She also had a small bowel perforation in the area of a high-grade stricture which compromised the bowel lumen. Limited small bowel resection was carried out and a primary anastomosis was performed. Postoperatively she has had significant ileus and has had slow return of intestinal function. She has had some flatus for the past 3 days and she had 3 large bowel movements today with a large volume of flatus. She does not have any discomfort and is tolerating a full diet. Patient was discharged home with plans for following up in the office on 23 August 2021. Discharge diagnosis: High-grade small bowel obstruction Secondary discharge diagnosis: Extensive intra-abdominal adhesions Postoperative anemia Mild anasarca Reason for admission: Small bowel obstruction Procedures: Exploratory laparotomy with adhesiolysis and small bowel resection Pertinent studies/significant findings: CT of abdomen and pelvis with contrast Complications: None Time Spent with Patient Time attestation: Total time spent providing and/or coordinating discharge services: Physical Examination Vital Signs Vital signs: Temp Pulse Resp BP Pulse Ox 98.9 F 95 H 18 123/80 98 08/13/21 16:00 08/13/21 16:00 08/13/21 16:00 08/13/21 16:00 08/13/21 16:00 Eyes Eye exam: PERRL and normal ocular movement ENT ENT exam: normal nares, normal mucosa and no congestion Head Head exam IM: Present atraumatic, normal inspection and normocephalic Neck Neck exam: no masses, no bruits, trachea midline, no lymphadenopathy and no venous distension Cardiovascular Cardiovascular exam IM: Present normal rate and rhythm, RRR, +S1 and +S2; Absent JVD Respiratory Respiratory exam: normal expansion, normal respiratory effort and clear to auscultation Abdomen Abdomen: Present soft, tender (Mild incisional tenderness), bowel sounds (Good active bowel sounds) and distended (Moderate distention) Integumentary Integumentary: Present no rash and no growths Neurologic Neurologic: Present normal coordination and normal sensation Musculoskeletal Musculoskeletal: Present normal gait and normal posture Psychiatric Psychiatric: Present oriented to time, oriented to person, oriented to place, speech is normal and memory intact Discharge Plan Patient/Caregiver Discharge Instructions Activity: increase activity as tolerated Diet: Regular Diet Prescriptions: New oxycodone-acetaminophen [Endocet] 5-325 mg Tablet 1 tab PO Q4H PRN (Reason: Pain) Qty: 40 0RF polyethylene glycol 3350 [Miralax] 17 gram/dose powder 17 g PO BID MDD 34 g Qty: 510 0RF promethazine 25 mg tablet 25 mg PO Q4H PRN (Reason: Nausea) Qty: 20 0RF Continued tizanidine 4 mg tablet See Rx Instructions PO BID PRN (Reason: muscle spasticity) Qty: 90 1RF Rx Instructions: Take 2mg(0.5 tab) to 4 mg(1 tab) up to twice a day PRN; gabapentin 300 mg capsule 300 mg BID 0RF Follow Up Plan Follow up with: Brant Robles MD [Primary Care Provider] - Irene Man MD [Physician] - (Make an appointment to see me on August2021) Patient Disposition: Home Health Service Prognosis: Good Pending Pending Pending: Resuscitation Status Full Code Diet Full Liquid Diet Start MonAug 12 1139 Gabapentin (Gabapentin 300 Mg Capsule) 300 mg PO BID JOHN Last Admin: 08/13/21 09:03 Dose: 300 mg Documented by: Admin: 08/12/21 21:00 Dose: 300 mg Documented by: Admin: 08/12/21 08:39 Dose: 300 mg Documented by: [email or web address] Admin: 08/11/21 21:35 Dose: 300 mg Documented by: [email or web address] Admin: 08/11/21 09:32 Dose: 300 mg Documented by: Cosigned by: Admin: 08/10/21 20:49 Dose: 300 mg Documented by: SEJAL Metoclopramide HCl (Metoclopramide 10 Mg/2 Ml Vial) 10 mg IV Q6 JOHN [facility] Admin: 08/13/21 13:24 Dose: 10 mg Documented by: Admin: 08/13/21 05:24 Dose: 10 mg Documented by: Admin: 08/13/21 01:45 Dose: 10 mg Documented by: Admin: 08/12/21 18:05 Dose: 10 mg Documented by: Admin: 08/12/21 11:51 Dose: 10 mg Documented by: Admin: 08/12/21 06:00 Dose: 10 mg Documented by: Admin: 08/11/21 23:42 Dose: 10 mg Documented by: Admin: 08/11/21 17:29 Dose: 10 mg Documented by: Admin: 08/11/21 11:48 Dose: 10 mg Documented by: Admin: 08/11/21 06:07 Dose: 10 mg Documented by: Admin: 08/10/21 23:35 Dose: 10 mg Documented by: Admin: 08/10/21 17:47 Dose: 10 mg Documented by: Admin: 08/10/21 12:28 Dose: 10 mg Documented by: Admin: 08/10/21 05:32 Dose: 10 mg Documented by: Admin: 08/10/21 00:35 Dose: 10 mg Documented by: Admin: 08/09/21 17:45 Dose: 10 mg Documented by: Admin: 08/09/21 12:30 Dose: 10 mg Documented by: Admin: 08/09/21 05:35 Dose: 10 mg Documented by: Admin: 08/09/21 00:10 Dose: 10 mg Documented by: Admin: 08/08/21 17:47 Dose: 10 mg Documented by: Admin: 08/08/21 11:48 Dose: 10 mg Documented by: Admin: 08/08/21 06:36 Dose: 10 mg Documented by: Admin: 08/07/21 23:30 Dose: 10 mg Documented by: Admin: 08/07/21 17:09 Dose: 10 mg Documented by: Admin: 08/07/21 12:45 Dose: 10 mg Documented by: Admin: 08/07/21 05:07 Dose: 10 mg Documented by: Admin: 08/06/21 23:15 Dose: 10 mg Documented by: Admin: 08/06/21 21:24 Dose: Not Given Documented by: Admin: 08/06/21 12:20 Dose: 10 mg Documented by: Admin: 08/06/21 05:17 Dose: 10 mg Documented by: Admin: 08/06/21 01:00 Dose: 10 mg Documented by: [email or web address] Morphine Sulfate (Morphine 4 Mg/Ml Vial) 4 mg IV Q2HP PRN; Protocol PRN Reason: Per Pain Protocol Last Admin: 08/11/21 05:22 Dose: 4 mg Documented by: Admin: 08/09/21 00:09 Dose: 4 mg Documented by: Admin: 08/08/21 21:29 Dose: 4 mg Documented by: Admin: 08/07/21 21:11 Dose: 4 mg Documented by: Admin: 08/07/21 17:58 Dose: 4 mg Documented by: Admin: 08/07/21 07:34 Dose: 4 mg Documented by: Admin: 08/07/21 01:43 Dose: 4 mg Documented by: DARIN Ondansetron HCl (Ondansetron 4 Mg/2 Ml Vial) 4 mg IV Q4HP PRN; Protocol PRN Reason: Nausea/Vomiting Last Admin: 08/07/21 07:33 Dose: 4 mg Documented by: Admin: 08/07/21 01:43 Dose: 4 mg Documented by: DARIN Pantoprazole Sodium (Pantoprazole 40 Mg Vial) 40 mg IV BIDAC JOHN Last Admin: 08/13/21 09:03 Dose: 40 mg Documented by: Admin: 08/12/21 17:12 Dose: 40 mg Documented by: [email or web address] Admin: 08/12/21 07:06 Dose: 40 mg Documented by: [email or web address] Admin: 08/11/21 17:28 Dose: 40 mg Documented by: Admin: 08/11/21 08:44 Dose: 40 mg Documented by: Admin: 08/10/21 17:46 Dose: 40 mg Documented by: Admin: 08/10/21 07:07 Dose: 40 mg Documented by: Admin: 08/09/21 17:45 Dose: 40 mg Documented by: Admin: 08/09/21 07:31 Dose: 40 mg Documented by: Admin: 08/08/21 17:47 Dose: 40 mg Documented by: Admin: 08/08/21 07:23 Dose: 40 mg Documented by: Admin: 08/07/21 17:10 Dose: 40 mg Documented by: Admin: 08/07/21 07:23 Dose: 40 mg Documented by: Admin: 08/06/21 21:38 Dose: 40 mg Documented by: Admin: 08/06/21 07:00 Dose: 40 mg Documented by: [email or web address] Promethazine HCl (Promethazine 25 Mg/Ml Vial) 12.5 mg IV Q4HP PRN; Protocol PRN Reason: Nausea/Vomiting Last Admin: 08/05/21 22:39 Dose: 12.5 mg Documented by: SERA Shift Summary 08/13/21 16:38 Shift Summary by Natalie Cano Primary Diagnosis: SBO Registration Status: Day of Hospitalization: 08/05/21 Date of Surgery (if applicable): 08/06/21 - exploratory laparotomy with adhesiolysis and small bowel resection Pertinent Medical Dx/Issues (may be more than one): SBO, 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 Vital Signs with Trends: VSS on room air Meds (abo, pain, BP, etc): IV ABO, scheduled Reglan. No pain meds this shift. Lines/Tubes: MONICA drain x1 Oxygen needs (home use vs. current use): None Lab/Rad results: No labs drawn today Date of last BM: 08/13 x2 - loose, with 3 large formed zachery. Passing gas, hypoactive bowel tones. Elimination: Voids per bathroom Recommendations/questions for MD: Trends (is the patient improving?): Pt ambulating in room and hallway x3 independently Activity: Up independently Expected date of discharge: TBD, perhaps today pending abd xray results. Discharge Plan (needs, disposition, etc): Pt primary caregiver for , would like to return home. Additional Info: A&Ox4 - pleasant and cooperative, uses call light appropriately. Midline abdominal incision with marcio dressing CDI. MONICA dressing w/ serous drainage. - needs to be checked every 4 hours to be sure it doesn't get too full. Midline abdomen incision with marcio and clear dressing intact. Initialized on 08/13/21 16:38 - END OF NOTE
--- NOTE | 2021-08-18 14:22 | Operative Note ---
DATE OF OPERATION: 08/06/2021 PREOPERATIVE DIAGNOSIS: Small bowel obstruction. POSTOPERATIVE DIAGNOSES: Extensive intraabdominal adhesions with small bowel obstruction. PROCEDURE: Exploratory laparotomy with adhesiolysis, small bowel resection. FINDINGS: Extensive adhesions of the mid and distal small bowel with three areas of near total obstruction, intraabdominal small bowel perforation due to major dilation and friability of the bowel. DESCRIPTION OF PROCEDURE: Under general anesthesia, the patient's abdomen was prepped and draped in a sterile field. The old midline incision was incised. The small bowel was densely adherent to the peritoneum. The incision was extended more superiorly to try to find an area without adhesions. Once the peritoneal cavity was entered, there was a moderate amount of serous fluid. Using gentle blunt dissection and Metzenbaum scissors, the adhesions to the anterior abdominal wall were taken down. The omentum was very thin and was also adherent to the small bowel loops and into the peritoneum. These connections were taken down with sharp dissection and some with the Voyant cautery device. Next, the bowel was inspected proximally where it was significantly dilated. It was followed until extensive adhesions were encountered. These were using Metzenbaum scissors. This was continued distally. There were three areas of near total obstruction. These areas were gently dissected using Metzenbaum scissors. There was a tight band in the mid portion of the small bowel where the wall of the bowel was compromised and as the band was being incised perforation occurred. The bowel was clamped with a Doyen clamp proximal and distal to the tear of the bowel. Irrigation was carried out. The rest of the bowel was dissected. The bowel was then followed into the pelvis were dense adhesions were encountered. These were with care. I was able to get all of the bowel down to the terminal ileum where the bowel was normal size. Copious irrigation was carried out. Nasogastric tube was placed in the area of the tear in the bowel and the fluid and air was suctioned from the proximal bowel. About 1500 mL of fluid was removed. Once the fluid was removed, the segment of bowel that was torn was transected using the Contour stapler proximally and distally. A nnow-yx-pmlu anastomosis was then performed using a EDEN 55 stapler and a TA 60 stapler. The anastomosis was oversewn using running locking 2-0 Prolene. Mesenteric defect was closed with a 2-0 Monocryl. The bowel was then inspected from the ligament of Treitz to the cecum and no other areas of obstruction were found. A drain was placed in the pelvis because of the bowel leak that had occurred. It was brought out through the left lower quadrant abdominal wall. More irrigation was carried out. Sponge, needle, instrument, and blade counts were verified as correct. The fascia was closed with running #1 Prolene. Subcutaneous tissue was closed with 2-0 Monocryl. Skin was closed with marcio. The drain was secured with 2-0 nylon. Tegaderm dressing was placed. The patient tolerated the procedure well. She was awakened, transferred to a bed, and taken to the postanesthetic care unit in satisfactory condition. LCS:tory Job ID: [id number] Doc ID: [id number] Irene Man M.D.
== END 2021-08-13 20:04 | disposition home health service (06) | DRG 329 ==
LOC: ED 19:32 → MEDSUR 19:32
PROVIDERS: ADMIT Family Medicine Adult Medicine; ATTEND Family Medicine Adult Medicine